=== PATIENT | female | born 1990 | race Caucasian/White ===

== ENCOUNTER 2018-01-03 13:52 | Inpatient (IN) | payer BC ==
[2018-01-03] VITALS (20 sets, daily range): BP systolic 110–131; BP diastolic 57–87; PULSE 84–107; TEMP 97.6–98.8
[~2018-01-03] VITALS: Ht 170.2 cm; Wt 80.0 kg
[~2018-01-03 13:52] MED LIST: MOTRIN 800800 MG/TAB PO; PERCOCET 325 MG1 TA2 PO; PRENATAL1 TA7 PO
[2018-01-03 14:27] LABS: BASO % 0.2 % (0.0-2.0); EOS # 0.1 (0.0-0.7); EOS % 1.1 % (0-4.0); GRAN # 8.1 (1.4-6.5); GRAN % 72.8 % (42.2-75.2); HEMATOCRIT 38.6 % (37.0-47.0); HEMOGLOBIN 13.6 g/dl (12.5-16.0); LYMPH # 2.1 (1.2-3.4); MEAN CELL VOLUME 90 fl (80.0-100.0); MEAN CORPUSCULAR HEMOGLOBIN 32 pg (27.0-31.0); MEAN CORPUSCULAR HGB CONC 35 g/dl (33.0-37.0); MEAN PLATELET VOLUME 11.5 fl (7.4-10.4); MONO # 0.7 (0.1-0.6); MONO % 6.2 % (1.7-9.3); PLATELET COUNT 177 K/mm3 (130-400); RED BLOOD COUNT 4.29 M/mm3 (4.10-5.30); REDCELL DISTRIBUTION WIDTH-CV 13.4 % (11.5-14.5)
[2018-01-03] MEDS ORDERED: PERCOCET 325 MG1 TA2 PO (17:57)
[2018-01-03] MEDS ORDERED: IBU600 MG PO (17:57)
[2018-01-04 01:30] VITALS: BP 106/75; PULSE 75; TEMP 97.6
[2018-01-04 05:10] VITALS: BP 108/58; PULSE 81; TEMP 97.8
[2018-01-04 06:30] VITALS: BP 103/68; PULSE 80; TEMP 97.8
[2018-01-04 11:02] VITALS: BP 98/59; PULSE 78; TEMP 97.7
[2018-01-04 16:30] VITALS: BP 99/66; PULSE 77; TEMP 97.7
[2018-01-04 20:20] VITALS: BP 114/74; PULSE 86; TEMP 98.6
[2018-01-05 08:00] VITALS: BP 114/64; PULSE 86; TEMP 97.9
== END 2018-01-05 13:50 | disposition home or self-care (01) | DRG 775 ==
LOC: LDRO 13:52 → LDR 13:56 → OB 01-04 09:19
PROVIDERS: Obstetrics & Gynecology
PROC: 10E0XZZ Delivery of Products of Conception, External Approach (ICD-10-PCS; principal; 2018-01-03)
PROC: 0KQM0ZZ Repair Perineum Muscle, Open Approach (ICD-10-PCS; 2018-01-03)
DX: O70.1 Second degree perineal laceration during delivery (principal); Z37.0 Single live birth; Z3A.40 40 weeks gestation of pregnancy; Z22.330 Carrier of Group B streptococcus
CPT/HCPCS: J2540; J2590; J2795; J7120

== ENCOUNTER 2020-03-20 18:20 | Inpatient (IN) | payer BC ==
[2020-03-20] VITALS (18 sets, daily range): BP systolic 101–140; BP diastolic 61–100; PULSE 75–105; TEMP 97.9–98
[~2020-03-20] VITALS: Ht 167.6 cm; Wt 82.3 kg
[~2020-03-20 18:20] MED LIST changes: +IBU600 MG PO; +PRENATAL 191 CTB PO; -PRENATAL1 TA7 PO
--- NOTE | 2020-03-20 18:25 | NUR ---
G3L2 at 38 weeks and 6 days arrives to unit with complaint of spontaneous rupture of membranes around 1645. Pt reports feeling large gush and continued to leak clear fluid after walking around. Pt denies strong contractions or vaginal bleeding. Reports good movement. Pt denies RUQ pain, blurry vision, or headaches. Clean gown on. Pt oriented to room, call light within reach, bed in low and locked position. US and toco explained and applied. Amnitrace positive. SVE 4/70/-2. Vital signs obtained. Admission assessment started.
--- NOTE | 2020-03-20 19:05 | NUR ---
18G IV started in right forearm with 1 attempt. Admission labs obtained off IV start. Lactated Ringers infusing to gravity. Consents reviewed and signed with patient and spouse. All questions answered.
[2020-03-20 19:43] LABS: BASO % 0.4 % (0.0-2.0); EOS # 0.1 (0.0-0.7); EOS % 1.2 % (0-4.0); GRAN # 5.1 (1.4-6.5); GRAN % 65.2 % (42.2-75.2); HEMOGLOBIN 11.2 g/dl (12.5-16.0); LYMPH % 25.2 % (20.0-51.0); MEAN CELL VOLUME 86 fl (80.0-100.0); MEAN CORPUSCULAR HEMOGLOBIN 28 pg (27.0-31.0); MEAN CORPUSCULAR HGB CONC 33 g/dl (33.0-37.0); MEAN PLATELET VOLUME 12.3 fl (7.4-10.4); MONO # 0.6 (0.1-0.6); MONO % 7.5 % (1.7-9.3); PLATELET COUNT 209 K/mm3 (130-400); RED BLOOD COUNT 4.01 M/mm3 (4.10-5.30); REDCELL DISTRIBUTION WIDTH-CV 13.2 % (11.5-14.5)
[2020-03-20 19:45] LABS: HEMATOCRIT 34.3 % (37.0-47.0)
--- NOTE | 2020-03-20 21:52 | NUR ---
2144 - Hakeem Hare CRNA on unit. Pt requesting epidural at this time. 2147 - Pt positioned to sitting on edge of bed. DARLEEN Mcgee at bedside. Epidural procedure, risks, and benefits reviewed with patient. Pt verbalized understanding. 2151 - Test dose by DARLEEN Mcgee. Pt denies adverse reactions. 2154 - Pt positioned to wedge left with peanut ball. Safety precautions reviewed. Call light within reach. Bed in low and locked position. See anesthesia record.
--- NOTE | 2020-03-20 23:00 | NUR ---
Salazar placed to dependent drainage at this time. Clear, yellow urine returned. Salazar secured to leg using statlock. SVE /0
--- NOTE | 2020-03-20 23:26 | NUR ---
2315 - Dr. Vigil at bedside. Pt educated on pushing techniques, verbalized understanding. Pt positioned into footplates. Salazar catheter removed. 2320 - Dr. Vigil gowned and gloved at perineum. Initial push at this time. Pushing well. Nursery RN Viola Rebolledo at bedside. 2326 - Spontaneous vaginal delivery of viable girl. placed on mothers abdomen, care of assumed to DIANE Kramer. Pitocin off. Cord clamped x 2 and cut by FOB. Cord blood obtained. 2330 - Spontaneous delivery of intact placenta. Pitocin restarted at 333 mL/hr. Fundus firm and down 2 from umbilicus. Second degree perineal laceration repaired by Dr. Vigil. 2335 - Pericare provided. New chux beneath patient. Ice pack to perineum. Pt positioned in bed for comfort. recovery started. See physician delivery note.
[2020-03-21] VITALS (8 sets, daily range): BP systolic 103–128; BP diastolic 60–84; PULSE 76–100; TEMP 97.6–98.2
--- NOTE | 2020-03-21 01:40 | NUR ---
Pt able to lift and hold each leg off of bed for 5 seconds. Pt positioned to sitting on edge of bed. Epidural catheter removed. Tip smooth, blue, and intact. Pt able to ambulate to bathroom with standby assistance. Pt unable to void at this time. Pericare explained and provided. Clean gown on. Mesh panties and peripad applied. Pt educated on needing 3 measured voids, encouraged to attempt again soon. Pt transferred to room 216 with belongings.
--- NOTE | 2020-03-21 10:39 | NUR ---
Initial visit; Patient thanked [employer]or for offering congratulations and God's blessings for the of her daughter. Business [employer]or thanked mom for choosing [facility].
[2020-03-22] VITALS: BP 111/73; PULSE 72; TEMP 97.4
[2020-03-22 04:10] VITALS: BP 128/91; PULSE 108; TEMP 98.4
[2020-03-22 07:22] VITALS: BP 120/74; PULSE 74; TEMP 98
== END 2020-03-22 12:10 | disposition home or self-care (01) | DRG 807 ==
LOC: LDRO 18:20 → LDR 18:31 → LDRO 18:45 → LDR 18:45 → OB 03-21 02:00
PROVIDERS: Obstetrics & Gynecology; ADMIT Obstetrics & Gynecology
PROC: 10E0XZZ Delivery of Products of Conception, External Approach (ICD-10-PCS; principal; 2020-03-20)
PROC: 0KQM0ZZ Repair Perineum Muscle, Open Approach (ICD-10-PCS; 2020-03-20)
DX: O70.1 Second degree perineal laceration during delivery (principal); Z37.0 Single live birth; Z3A.38 38 weeks gestation of pregnancy
CPT/HCPCS: J2540; J2590; J2795; J7120